=== PATIENT | male | born 1940 | race Caucasian/White ===

== ENCOUNTER 2016-09-03 22:08 | Inpatient (IN) | payer MEDICARE, OTHER ==
[~2016-09-03] VITALS: Ht 175.3 cm; Wt 89.7 kg
--- NOTE | ~2016-09-03 | CATH ---
Cardiac Diagnostic + PCI Report Demographics Patient Name DEON Maier Gender Male Date of 1940 Age 75 year(s) Patient Number [id number] Date of Study 09/04/2016 Visit Number [id number] Room Number G6322 [place] [id number] Ht 175.26 cm Wt 91.3 kg Referring Gale Callahan MD Primary Physician Physician Performing Shandra Secondary Physician Physician Silvia FERNANDEZ Diagnostic [facility] Assisting Physician Physician Silvia FERNANDEZ Interventional [facility] Physician Ethics Officer Physician Silvia FERNANDEZ Findings and Conclusions Diagnostic Findings and Conclusion NSTEMI with trop of 5.2/CKMB 70 with ongoing chest pain: 2 vessel CAD. 100% proximal LCX occlusion, this is the culprit for STEMI. 60% ostial Diag stenosis. Aneurysmal LAD and RCA. Diagnostic Recommendations PCI of culprit vessel (LCx). Interventional Findings and Conclusion Successful PCI of LCx with two RENU. Interventional Recommendations DAPT x 1 year. Patient will be observed overnight. Continue current medications. Hydration and followup creatinine. Patient has been instructed to not lift anything more than 5 pounds for 1 week. I will plan on seeing the patient back in 2 week(s). Aggressive risk factor management. Aggressive medical therapy for coronary artery disease. ASA. Statin. Beta Nash. Osbaldo Inhibitor. Dual Anti-platelet therapy. Lipid lowering medication: statin will be given. Cardiac diet . Optimization of medical therapy as an outpatient. Optimization of medical therapy as an inpatient. Referral to Cardiac Rehabilitation now and at discharge . Procedure Description The patient was brought to the diagnostic cardiac catheterization-EP laboratory in the fasting, non-sedated state. Informed consent was obtained in the written and verbal form after the risks and benefits were explained. The patient had no further questions and agreed to proceed. The planned puncture-incision site(s) were shaved and prepped with ChloraPrep and draped in the usual sterile manner. Conscious sedation, supplemental oxygen, and pain control medications were delivered by a registered nurse under physician guidance. Surface ECG rhythm, blood pressure measurement, and pulse oximetry were monitored throughout the procedure. Arterial access. The access site was infiltrated with lidocaine. The vessel was entered with the Seldinger technique. A sheath was advanced into the vessel and used for catheter placement. Selective left coronary angiography. A catheter was advanced into the left coronary vessel ostium under Fluoroscopic guidance. Contrast was injected by hand. Images were obtained in multiple projections. Selective right coronary angiography. A catheter was advanced into the right coronary vessel ostium under fluoroscopic guidance. Contrast was injected by hand. Images were obtained in multiple projections. Left heart catheterization. A catheter was advanced across the aortic valve to the left ventricle under fluoroscopic guidance. Resting hemodynamics were obtained. Angioplasty and Stent Placement: A guiding catheter was used to intubate the vessel. A 0.14 wire was then used to cross the lesion. A balloon catheter was placed across the lesion and inflated. The balloon catheter was then removed. A Drug Eluting Stent was placed and inflated. Post placement angiograms were performed. Arterial artery hemostasis was achieved. The patient was transferred to a regular nursing floor via cart accompanied by a nurse. The patient left the laboratory in stable condition. Diagnostic Cath Status: Urgent Interventional Cath Status: Urgent Procedure Procedure Type Diagnostic procedure:Angiography:, Coronary Angios w/[facility] PCI procedure:Drug Eluting Coronary Stent:, CFX Indications: Non-ST elevation VA and Chest pain. The procedure was explained in detail to the patient. Risks, complications and alternative treatments were reviewed. Written consent was obtained. Medications Reviewed with Patient prior to Procedure. Angiographic Findings Dominance: Right Cardiac Arteries and Lesion Findings LMCA: Normal (0% Stenosis). LAD: Aneurysmal and Multiple stenosis. Lesion on Mid LAD: Mid subsection.40% stenosis . Lesion on 1st Diag: Ostial.60% stenosis . Comments:Focal. LCx: Acute occlusion. Lesion on Prox CX: Proximal subsection.100% stenosis 14 mm length reduced to 0%. Pre procedure ROB 0 flow was noted. Post Procedure ROB III flow was present. The guidewire cross was successful.The lesion was diagnosed as a high risk lesion.Culprit lesion. Devices used - Runthrough NS .014 x 180. Number of passes: 1. - Emerge Balloon 2.0 x 8. 2 inflation(s) to a max pressure of: 4 mike. - Promus Premier 2.75 x 12 Stent. 2 inflation(s) to a max pressure of: 11 mike. - Runthrough NS .014 x 180. Number of passes: 1. - Promus Premier 2.5 x 12 Stent. 2 inflation(s) to a max pressure of: 16 mike. - Emerge Balloon 2.0 x 8. 1 inflation(s) to a max pressure of: 8 mike. - Emerge Balloon 2.0 x 8. 1 inflation(s) to a max pressure of: 8 mike. - Emerge Balloon 2.0 x 8. 1 inflation(s) to a max pressure of: 8 mike. RCA: Diffuse irregularity.Ectactic. Lesion on Prox RCA: Proximal subsection.10% stenosis .The lesion was diffuse. Lesion on 1st RPL: Mid subsection.30% stenosis . Coronary Tree Procedure Data Procedure Date Date: 09/04/2016Start: 09:35 AMEnd: 10:36 AM Entry Locations - Retrograde Percutaneous access was performed through the Right Radial artery (Primary location). A 5.5 Fr sheath was inserted. Hemostasis was successfully obtained using Mechanical Compression. Closure Comments: 14 ml of air in R. Band by Noah Louis. Procedure Medications Order and Administration + + + + + !Time !Medication !Dosage !Route ! + + + + + !09/04/2016 09:24 !Oxygen !2 l/min ! ! !AM ! ! ! ! + + + + + !09/04/2016 09:29 !Versed !1 mg !I.V. ! !AM ! ! ! ! + + + + 09/04/2016 09:29 !Fentanyl !25 mcg !I.V. ! !AM ! ! ! ! + + + + + 09/04/2016 09:40 !Heparin (ACC_3) !2500 units !I.V. bolus ! !AM ! ! ! ! + + + + 09/04/2016 09:40 !Heparin Drip ( 2500u/250ml) ! ! ! !AM ! ! ! ! + + + + 09/04/2016 09:46 !Angiomax (Bivalirudin) !67.5 mg !I.V. bolus ! !AM !(ACC_5) ! ! ! + + + + 09/04/2016 09:49 !Versed !1 mg !I.V. ! !AM ! ! ! ! + + + + + !09/04/2016 09:49 !Fentanyl !50 mcg !I.V. ! !AM ! ! ! ! + + + + + !09/04/2016 09:50 !Angiomax (Bivalirudin) !1.75 mg/kg/hr!I.V. drip ! !AM !(ACC_5) ! ! ! + + + + + !09/04/2016 10:04 !Fentanyl !25 mcg !I.V. ! !AM ! ! ! ! + + + + + !09/04/2016 10:04 !Nipride !200 mcg !I.C. ! !AM ! ! ! ! + + + + + !09/04/2016 10:09 !Nitroglycerin ! !I.V. drip ! !AM ! ! ! ! + + + + + !09/04/2016 10:12 !Nitroglycerin !200 mcg !I.C. ! !AM ! ! ! ! + + + + + !09/04/2016 10:26 !Brilinta (Ticagrelor) !180 mg !P.O. ! !AM !(ACC_20) ! ! ! + + + + + Devices Used - A5 Fr. BS JR 4 Diag. Catheterwas used for:Right coronary angiography. - A5 Fr. BS JL 3.5 Diag. Catheterwas used for:Left coronary angiography. - A6 Fr. EBU 3.5 Guide Catheterwas used for:Circumflex Intervention. Contrast Material - Isovue 187532 ml Fluoroscopy Time: Diagnostic: 14:36 minutes. Total: 14:36 minutes. Fluoroscopy Dose: Diagnostic: 2183 mGy. Total: 2183 mGy. Estimated Blood Loss: 15 ml. Medical History Allergies - No known allergies. Risk Factors The patient risk factors include:treated hypercholesterolemia, treated hypertension, family history of premature CAD, last creatinine: 1.2 mg/dl, creatinine clearance: 68.69 ml/min, dyslipidemia and former tobacco use. Admission Data Admission Date: 09/03/2016 Admission Time: 11:35 PM Admit Source: Emergency department Insurance Payors: Medicare. Admission Medications + +------+------+ + + + + !Medication !Dosage!Times !Last !Last !Administered !Comments ! ! ! !Per !Delivery !Delivery ! ! ! ! ! !Day !Date !Time ! ! ! + +------+------+ + + + + !Aspirin ! ! ! ! ! ! ! !(any) ! ! ! ! ! ! ! + +------+------+ + + + + !Statin ! ! ! ! ! ! ! !(any) ! ! ! ! ! ! ! + +------+------+ + + + + !Beta ! ! ! ! ! ! ! !Nash ! ! ! ! ! ! ! !(any) ! ! ! ! ! ! ! + +------+------+ + + + + Clinical Evaluation Leading to Procedure - The patient's CAD presentation was assessed as: Non-STEMI.The symptom onset was first noted on 09/03/2016 09:00 PM(time was estimated). Snapshots Hemodynamics Condition: Rest O2 Consumption: Estimated: 245.88Heart Rate: 80 bpm Pressures (mmHg) +-----+ + !Site !Pressure ! +-----+ + !LV !150/12 ,22 ! +-----+ + !LV !150/11 ,21 ! +-----+ + !AO !152/88 (116) ! +-----+ + !LV !154/12 ,23 ! +-----+ + !AO !151/87 (117) ! +-----+ + !AO !148/83 (111) ! +-----+ + Valve Gradients and Areas + +---------+---------+---------+ +---------+ + !Valve !Peak !Mean !Area !Index !Flow !Source ! + +---------+---------+---------+ +---------+ + !Aortic !1 !0 ! ! ! ! ! + +---------+---------+---------+ +---------+ + !Aortic !1 !0 ! ! ! ! ! + +---------+---------+---------+ +---------+ + Shunts Oxygen Values O2 Capacity 191.76 O2 Consumption 245.88 Signatures dtt: SILVIA DOUGLAS dtd: 09/04/16 0935 Physician Self Edit
--- NOTE | ~2016-09-03 | ECHO ---
Transthoracic Echocardiography Report (TTE) Demographics Patient Name RIZWAN CHAVARRIA Date of Study 09/04/2016 Patient Number [id number] Visit Number [id number] Date of 1940 Room Number G6322 Accession Number [id number] Gender Male Age 75 year(s) Referring Hillary Tovar MD Labor Relations Officer Joseph Sin RVT, Physician RDCS Physician Interpreting Shandra Vega Geoscientist Physician Supervising Ordering Physician Hillary Tovar MD, MD/P Nurse Stress Actimize Architect Conclusions Contractility Score Summary Normal Left Ventricular contractility was noted. Summary Normal LV/RV size and systolic function. The estimated left ventricular ejection fraction is 55-60%. Mild concentric left ventricular hypertrophy. Diastolic flow assessment reveals impaired relaxation consistent with Grade I diastolic dysfunction . The left atrium is mildly dilated. No significant valvular abnormalities. Procedure Type of Study TTE procedure:2D Echocardiogram. Procedure Date Date: 09/04/2016 Start: 08:21 AM Study Location: Inpatient Portable Technical Quality: Adequate visualization Indications:Chest pain. Appropriate Use Criteria: 8 Patient Status: Routine HR: 71 bpm BP: 125/59 mmHg Allergies - No known allergies. M-Mode/2D Measurements LV Diastolic Dimension: 4.32 cm LV Systolic Dimension: 2.97 cm LV Septum Diastolic: 1.21 cm LV PW Diastolic: 1.22 cm AO Root Dimension: 2.8 cm Cardiac Output: 4.01 l/min AV Cusp Separation: 2.1 cm RV Diastolic Dimension: 2.17 cm LA volume: 71 ml LVOT: 2.1 cm RV Base: 2.92 cm LVOT VTI: 16.3 cm RV Mid: 1.7 cm LV Stroke volume: 56.43 ml TAPSE: 2.66 cm TDI-S': 8.77 cm/s Doppler Measurements AV Peak Velocity: 1.04 m/s MV Peak E-Wave: 0.71 m/s AV Peak Gradient: 4.33 mmHg MV Peak A-Wave: 0.62 m/s AV Mean Gradient: 3 mmHg MV E/A Ratio: 1.14 LVOT Peak Velocity: 0.72 m/s MV P1/2t: 66 msec TR Gradient:15.52 mmHg PV Peak Velocity: 0.66 m/s PV Peak Gradient: 1.75 mmHg E' Septal Velocity: 0.07 m/s A' Septal Velocity: 0.12 m/s E' Lateral Velocity: 0.09 m/s A' Lateral Velocity: 0.16 m/s Findings Left Ventricle Mild concentric left ventricular hypertrophy. Diastolic assessment reveals Grade I diastolic dysfunction. Right Ventricle Normal right ventricle structure and function. Left Atrium The left atrium is mildly dilated. There is no evidence of patent foramen ovale or atrial septal defect by color Doppler. Right Atrium Normal right atrial size. IVC measures 1.80 cm with inspiratory collapse. Mitral Valve Normal mitral valve structure and function. Aortic Valve Normal aortic valve structure and function. Tricuspid Valve Normal tricuspid valve structure and function. Pulmonic Valve PV is not well visualized. Pericardial Effusion No evidence of pericardial effusion. Epicardial fat pad noted. Miscellaneous Visualized portions of the aortic root and ascending aorta appear normal in size. Pleural Effusion No evidence of pleural effusion. Contractility Score LV regional wall motion:(0-Non visualized 1-Normal 2-Hypokinesis 3-Akinesis 4-Dyskinesis 5-Aneurysm) Signature dtt: ANNALEE DOUGLAS dtd: 09/04/16 0821 Physician Self Edit
--- NOTE | ~2016-09-03 | DS ---
PATIENT'S NAME: RIZWAN CHAVARRIA [facility] AGE: 75 Y [address] ROOM: [address] [place] [address] LOCATION: GPCU ADMIT DATE: 09/04/2016 Discharge Summary DISCHARGE DATE: 09/05/2016 FAMILY PHYSICIAN: Bravo Ontiveros PA-C ATTENDING PHYSICIAN: Chele Thornton PRIMARY DIAGNOSES: 1. Tkp-XC-konyqwd elevation myocardial infarction. 2. Acute hypoxic respiratory failure. 3. Chronic conditions includes history of prostate cancer. PRINCIPAL PROCEDURE: Done for the patient includes a cardiac cath with a PCI with placement of a drug-eluting stent to the OM. LABORATORY DATA: Cardiac enzyme on admission, first was less than 0.040, highest level of cardiac enzyme obtained was 36.5, prior to discharge was 11; CPK highest level obtained was 1050; CK-MB on admission was 1.0, highest level obtained was 114.4. WBC remained stable throughout the hospital stay at 7.7 upon discharge; H and H were also stable throughout the hospital stay at 14.5 and 43.5 upon discharge; platelet was stable at 210. Creatinine was stable at 1.2 on admission, prior to discharge was 1.1; sodium was also stable throughout the hospital stay; potassium remained stable throughout the hospital stay at 4.0 on admission, prior to discharge was 4.5. Liver function test was within normal limits throughout the hospital stay. Hemoglobin A1c was 5.7. Total cholesterol was 271, triglyceride 269, HDL 49, LDL 169. RADIOLOGY DATA: Chest x-ray, mild bibasilar scarring or atelectasis. CTA for PE protocol reported as no evidence of pulmonary embolic disease, diffuse bronchial wall thickening raising the question of bronchitis, cholelithiasis, right renal cyst measuring 5 cm. Echocardiogram, normal left ventricular contractility, ejection fraction 55% to 60%, mild concentric LVH, diastolic shows impaired relaxation consistent with grade 1 diastolic dysfunction. Catheterization: Two-vessel coronary artery disease, 100% proximal left circumflex occlusion. This is the culprit for STEMI. 60% posterior diagonal stenosis. So the patient had stenting of the left circumflex, aneurysmal LAD and RCA, and interventional findings and conclusion, successful PCI of left circumflex with 2 RENU. HOSPITAL COURSE: For history of present illness, please take a look at the H and P, which was done by Dr. Thornton. The patient was admitted to progressive care unit, was managed per the ACS protocol, was on heparin, and also had a Cardiology consult. He did also present with acute hypoxic respiratory failure, had a PE ruled out with a CTA chest, and by the next day of the hospital stay, the patient was taken into the clinical lab technologist, and had a catheterization done with PCI and had complete occlusion of the left PATIENT'S NAME: RIZWAN CHAVARRIA [facility] AGE: 75 Y [address] ROOM: [address] [address] LOCATION: GPCU ADMIT DATE: 09/04/2016 Discharge Summary DISCHARGE DATE: 09/05/2016 FAMILY PHYSICIAN: Bravo Ontiveros PA-C ATTENDING PHYSICIAN: Chele Thornton, and subsequently had a RENU stent placed. Procedure was well tolerated by the patient without any intraoperative or postop complication, and one day post procedure, the patient was in his stable clinical condition. He was weaned off oxygen, and he was cleared for discharge by Cardiology, and the patient was discharged home. MEDICATIONS ON DISCHARGE: 1. Aspirin 81 mg p.o. daily. 2. Vasotec 2.5 mg p.o. daily. 3. Lopressor 25 mg p.o. twice daily. 4. Crestor 40 mg p.o. q.h.s. 5. Brilinta 90 mg p.o. twice daily. 6. Casodex 50 mg p.o. daily. 7. Lupron Depot 30 mg IM every 12 days. 8. MiraLAX 17 g p.o. q.24 hours. MD VERONIKA PETERS/leroy /[id number] d: 09/06/16 0000 t: 09/18/16 1643, DISCHARGE SUMMARY
--- NOTE | ~2016-09-03 | HP ---
PATIENT'S NAME: RIZWAN CHAVARRIA [facility] AGE: 75 Y [address] ROOM: [address] [place], [place] [address] LOCATION: GPCU ADMIT DATE: 09/03/2016 History & Physical DISCHARGE DATE: FAMILY PHYSICIAN: PHYSICIAN, UNKNOWN ATTENDING PHYSICIAN: LEE NOLAND DATE OF SERVICE: CHIEF COMPLAINT: Chest pain. HISTORY OF PRESENT ILLNESS: This is a 75-year-old male, who says that around 9 p.m. last night when he went to bed, he felt this substernal chest pain associated with mild dyspnea on exertion, and he said this substernal chest pain is like the chest tightness about intensity of 8/10 and is in the substernal area and it does not radiate. It is localized in that area. The pain is constant. At that time, the patient did not do anything and he was hoping that the chest pain would go away, but it did not. The chain pain actually got worse. Therefore, he called the ambulance, and the patient was brought here to the ER. During the ambulance ride, the patient got two doses of nitroglycerin sublingual and his chest pain got improved, but never went away totally. His dyspnea on exertion already resolved by the time he was in the ambulance. His only complaint was just the chest pain only at that time. In the emergency room, the patient was having more chest pain again and cardiac enzymes the first set in the emergency room was negative, troponin less than 0.04, CPK 87, CK-MB 1.0, and EKG on admission in the emergency room did show sinus arrhythmia with a right bundle-branch block. This is complete right bundle-branch block given that the QRS is more than 120 milliseconds and also has evidence of ST depression in the anterolateral inferior leads. No ST elevation. No prior EKG for comparison. The EKG performed in the ambulance also shows similar findings. The patient was put on nitroglycerin drip, and his chest pain got better. Right now, he is rating at a 2/10 intensity. The patient was admitted for further evaluation in the hospital and that was when I was notified for the admission. The patient says that he has had this kind of chest pain roughly 2 to 3 years ago about just one time, but he did not ask for any medical attention at that time. REVIEW OF SYSTEMS: As mentioned in the history of present illness. All other systems reviewed and negative, except those mentioned in the history of present illness. PAST MEDICAL HISTORY: PATIENT'S NAME: RIZWAN CHAVARRIA [facility] AGE: 75 Y [address] ROOM: [id number] [place], [place] [address] [facility] AD[facility] DATE: 09/03/2016 History & Physical DISCHARGE DATE: FAMILY PHYSICIAN: PHYSICIAN, UNKNOWN ATTENDING PHYSICIAN: LEE NOLAND 1. Hypertension. 2. History of prostate cancer, status post radical prostatectomy, on leuprolide, and status post radiation and already finished radiation. ALLERGIES: NO KNOWN DRUG ALLERGIES ACCORDING TO THE PATIENT. HOME MEDICATIONS: Currently, it is being reconciled. The patient does take a baby aspirin 81 mg daily. He took one dose already before coming to the hospital. SOCIAL HISTORY: The patient was a former cigarette smoker. He quit about in year 1979, and he was a former smoker about 2 packs per day for roughly 10 years. He is a social alcohol drinker, but he denies any alcohol abuse. He denies any illegal drug use. FAMILY HISTORY: Father from myocardial infarction at age 60s and mother from old age at 90-year-old. PAST SURGICAL HISTORY: 1. Status post right shoulder surgery. 2. Status post bilateral cataract surgery. 3. Status post radical prostatectomy for prostate cancer, already finished radiation and currently is on leuprolide. 4. Status post tonsillectomy. PHYSICAL EXAMINATION: VITAL SIGNS: At the time of my dictation, temperature 98, blood pressure 125/75, respirations 14, saturation 99% on 1 L nasal cannula, and heart rate 80. Pain 2/10 in the substernal chest area. GENERAL APPEARANCE: Alert and oriented x3. In no acute distress. HEENT: Pupils are equally round and reactive to light. Extraocular muscles intact. Nasal turbinates are normal bilaterally. Moist oral mucosa. NECK: No JVD. CARDIOVASCULAR: Regular rate and rhythm. Normal S1, S2. No murmur. No rubs. No gallops. RESPIRATORY: Clear. Chest wall nontender to palpation. ABDOMEN: Soft, nontender, and nondistended. Normal bowel sounds. No hepatosplenomegaly, and bowel sounds are present. EXTREMITIES: No edema in upper or lower extremities. NEUROLOGIC: Grossly nonfocal. SKIN: No ulcer. No rash. No cyanosis. PATIENT'S NAME: RIZWAN CHAVARRIA [facility] AGE: 75 Y [address] ROOM: [id number] [place], [place] [address] [facility] AD[facility] DATE: 09/03/2016 History & Physical DISCHARGE DATE: FAMILY PHYSICIAN: PHYSICIAN, UNKNOWN ATTENDING PHYSICIAN: LEE NOLAND LABORATORY DATA: Troponin less than 0.04 in the first set. The second set went up to 0.395. CPK 87, followed by 105. CK-MB 1.0, followed by 1.9, which is elevated. White blood cell 7.9, hemoglobin 14.3, hematocrit 42.6, MCV 93.2, platelet 221, glucose 137, BUN 22, creatinine 1.2, sodium 143, potassium 4.0, chloride 107, CO2 of 27, calcium 9.5, total protein 6.6, albumin 3.3, AST 20, ALT 20, alkaline phosphatase 50, total bilirubin 0.3, magnesium 2.3, anion gap 13, GFR 59, INR 0.93, PTT 23, D-dimer 0.51. IMAGING STUDIES: CT pulmonary angiogram on admission: The preliminary report was read as no pulmonary embolism. Moderate vascular disease. Mild diffuse bronchial wall thickening, consider bronchitis. Cholelithiasis. EKG on admission on September 03, 2016, at 10:20 p.m. shows sinus rhythm with occasional PVC and has a complete right bundle-branch block. Heart rate 76, QRS 136 milliseconds, QTc 438 milliseconds, MS [address] depression in the anterolateral inferior leads. No prior EKG for comparison. Repeat EKG again on September 04, 2016, at 2:19 a.m. showed sinus arrhythmia with complete right bundle-branch block, heart rate 91, QTc 423 milliseconds, QRS 134 milliseconds, MS 183 milliseconds, and still with ST depression in the anterolateral inferior leads. EKG performed during the ambulance on the way here showed sinus rhythm, heart rate 84 beats per minute with right bundle- branch block, QRS was 126 milliseconds, and still with ST depression at that time also in the anterolateral inferior leads. ASSESSMENT AND PLAN: 1. Regarding his jce-GS-frgtemg elevation myocardial infarction: N.p.o. Aspirin 81 mg three tablets right now and then 81 mg daily given the patient already received a baby dose aspirin at home before coming here; Crestor 40 mg p.o. daily (the patient has allergy to Lipitor which causes myalgia, but the patient is willing to try Crestor in the setting of NSTEMI); Lopressor 25 mg p.o. b.i.d. with holding parameter, hold if heart rate less than 60 or systolic blood pressure less than 100; IV heparin drip bolus, followed by drip per ACS protocol; and continue IV nitroglycerin drip, titrate for chest pain control. We will also order IV morphine p.r.n. for anxiety and for chest pain control and good for air hunger as well. Cycle cardiac enzymes. Cardiology consult in the morning. Transthoracic echo in the morning. Check A1c and lipid panel in the morning. Keep the potassium more than 4 and keep the magnesium more than 2. Further plan depends on clinical course. 2. Regarding his hypertension: Home medication will be addressed. For now, continue Lopressor in the setting of acute coronary syndrome. 3. Regarding his deep venous thrombosis prophylaxis: He is on heparin drip. 4. Code status: He is a DNI, but not DNR. PATIENT'S NAME: RIZWAN CHAVARRIA [facility] AGE: 75 Y [address] ROOM: [place] [address] [facility] AD[facility] DATE: 09/03/2016 History & Physical DISCHARGE DATE: FAMILY PHYSICIAN: PHYSICIAN, UNKNOWN ATTENDING PHYSICIAN: LEE NOLAND Time spent on the day of admission is 35 minutes including chart review, interviewing the patient, examining the patient, addressing all the questions and the concerns the patient had, and I also went over the plan of care in detail with the patient and nurses. Answered all of the patient's questions to his satisfaction. Further plan depends on the clinical course. The patient is in agreement with the plan on admission. Further plan will depend on the patient's clinical course. MD DOROTA ZAMAN/leroy /[id number] D: [id number] T: [id number] HISTORY & PHYSICAL
--- NOTE | ~2016-09-03 | CON ---
PATIENT'S NAME: RIZWAN PARKER [facility] AGE: 75 Y [address] ROOM: [id number] [place], [place] [address] LOCATION: GPCU ADMIT DATE: 09/04/2016 Consultation DISCHARGE DATE: FAMILY PHYSICIAN: PHYSICIAN, UNKNOWN ATTENDING PHYSICIAN: LEE NOLAND DATE OF CONSULTATION: 09/04/2016 REFERRING PHYSICIAN: ANNALEE DOUGLAS MD REQUESTING PROVIDER: Dr. Noland. REASON FOR CONSULTATION: Non-STEMI. CHIEF COMPLAINT: Chest pain. HISTORY OF PRESENT ILLNESS: The patient is a very pleasant, 75-year-old male who has history of prostate cancer, status post surgery, and now is on hormonal therapy. He also has history of hypertension. He does not have any known cardiac history. He says, around 9 p.m. last night when he went to bed, he felt substernal chest pain associated with shortness of breath. He said it was like a tightness, and it was 8/10 on the pain scale. It did not radiate to the arm or the jaw. The pain was continuous and quite severe. He was hoping that it would go away, but it really was persistent, and finally, he called the ambulance and ended up coming to [facility] ER. When he came in, the chest pain was even worse, and he got 2 doses of sublingual nitroglycerin in the ambulance, and the chest pain improved. He also received aspirin. When he came into the ER, EKG was done. EKG in the emergency room showed right bundle-branch block, and there were some mild ST depressions in the inferior leads and V3 and V4. There was no evidence of any ST elevation. His first set of enzymes were normal. The patient reports that he continued to have chest pain about 1 to 2 during the night. He was on heparin and nitroglycerin drip. This morning, his enzymes have increased significantly. CK-MB is in the 70s, and troponin peaked at 5.2. This a.m., he reports no chest discomfort, and he is quite comfortable. No shortness of breath. No fever, chills, nausea, vomiting, diarrhea, constipation, skin rashes, slurred speech, or changes in his strength or sensation. No changes in swallowing, vision, or hearing. No cough or sputum production. REVIEW OF SYSTEMS: Discussed with the patient, and the pertinent positives and negatives are PATIENT'S NAME: RIZWAN PARKER [facility] AGE: 75 Y [address] ROOM: [place] [address] LOCATION: GPCU ADMIT DATE: 09/04/2016 Consultation DISCHARGE DATE: FAMILY PHYSICIAN: PHYSICIAN, UNKNOWN ATTENDING PHYSICIAN: ELE NOLAND mentioned in the HPI. PAST MEDICAL HISTORY: 1. Hypertension. 2. History of prostate cancer. PAST SURGICAL HISTORY: Status post radical prostatectomy several years ago, status post radiation, and now on hormonal therapy for prostate cancer; status post right shoulder surgery; bilateral cataract surgeries; and status post tonsillectomy. ALLERGIES: NO KNOWN DRUG ALLERGIES. HOME MEDICATIONS: He is on: 1. Aspirin 81 mg daily. 2. MiraLAX p.r.n. 3. Lisinopril 10 mg daily. 4. Lupron injections every 3 months. 5. Casodex daily. SOCIAL HISTORY: He is a former cigarette smoker, he quit in the 80s. No illicit drug abuse or alcohol abuse. FAMILY HISTORY: No premature coronary artery disease or sudden cardiac . PHYSICAL EXAMINATION: VITAL SIGNS: Blood pressure 120/70, respirations 16, O2 saturation 99% on 1 L of oxygen, and heart rate in the 70s. The patient denies chest pain. GENERAL APPEARANCE: Alert and oriented x3, in no apparent distress. HEENT: Extraocular movements are intact. Mucous membranes moist. Atraumatic, normocephalic. NECK: No JVD. HEART: S1 and S2. Regular rate and rhythm. No murmurs, gallops, or rubs. RESPIRATORY: Clear to auscultation bilaterally. ABDOMEN: Soft. Bowel sounds positive. EXTREMITIES: No significant lower extremity edema. NEUROLOGIC: Grossly normal. MUSCULOSKELETAL: Good range of motion. SKIN: No rashes. Warm and dry. LABORATORY DATA: PATIENT'S NAME: RIZWAN PARKER [facility] AGE: 75 Y [address] ROOM: [place] [address] LOCATION: GPCU ADMIT DATE: 09/04/2016 Consultation DISCHARGE DATE: FAMILY PHYSICIAN: PHYSICIAN, UNKNOWN ATTENDING PHYSICIAN: LEE NOLAND Sodium 143, potassium 4.8, chloride 108, CO2 26, BUN 23, creatinine 1.2, and glucose 108. Alkaline phosphatase 50. GFR 59. Total cholesterol 271, triglycerides 269, HDL 49, VLDL 53, and LDL is 169. CPK when he came in 87, then 105, and this morning 493. CK-MB 1, 5.9, and then 70.5. Troponin 0.04, 0.3, and then 5.2. ProBNP 108. H and H are 14.1 and 42.3, WBC 8.8, and platelets are 232. Chest x-ray: No acute cardiopulmonary process. CT, preliminary report: No PE. ASSESSMENT AND PLAN: 1. Dab-UD-ciuyvoypv myocardial infarction. There is enzyme elevation that is quite significant, and the trend is suggestive of dul-DL-xstehgubx myocardial infarction. He also had chest pain most of the night; however, it was much milder than when he came in. He was on heparin and nitroglycerin drip. He is chest pain-free this morning. He got aspirin. He is on Crestor here. Lopressor has been started. He is on FLOWER inhibitor. We will go ahead and proceed with cardiac cath. Risks and benefits discussed with the patient, and the patient agreeable to proceed with cardiac cath. Risks of bleeding, bruising, infection, one in 100 cases risk of heart attack, , stroke, [place], losing a limb, ending up on dialysis, and contrast-induced nephropathy discussed in layman's terms with the patient, the risk of is less than 1 in a 1000. The patient, at this time, given the presentation, he is agreeable to proceed with cardiac cath. We will also get 2D echocardiogram to assess left ventricular systolic function as well as valve prior to proceeding with cath. He does not have any contrast allergies, and he is a good candidate for dual-antiplatelet therapy. 2. Hypertension. It is well controlled. We will continue his home medications. 3. History of prostate cancer, status post prostatectomy as well as radiation therapy. He is now on hormonal therapy. Thank you very much for allowing us to participate in the care of Mr. Parker. ANNALEE DOUGLAS MD AT/leroy /[id number] d: 09/04/16 1329 t: 09/05/16 0940, CONSULTATION REPORT
--- NOTE | ~2016-09-03 | ER ---
PATIENT'S NAME: RIZWAN CHAVARRIA [facility] AGE: 75 Y [address] ROOM: [place] [address] LOCATION: GPCU ADMIT DATE: 09/03/2016 ER/Outpatient Report DISCHARGE DATE: FAMILY PHYSICIAN: PHYSICIAN, UNKNOWN ATTENDING PHYSICIAN: LEE NOLAND Time of Arrival: 2206 hours. Time of Evaluation: 2206 hours. CHIEF COMPLAINT: Chest pain. HISTORY OF PRESENT ILLNESS: The patient is a 75-year-old male who presents to the Emergency Department today with a chief complaint of chest pain. He reports this started 1 hour prior to arrival. He denies any nausea or vomiting. Does report some shortness of breath as well as diaphoresis, no radiation. Did have an episode of near syncope as well. It is a pressure in the center of his chest, maximum is 8/10, currently it is 2/10 in severity. Denies any ripping or tearing sensation. No radiation to the back. Not maximal on onset. Denies history of PE or DVT in the past. No unilateral leg swelling. PAST MEDICAL HISTORY: Hypertension and prostate cancer. PAST SURGICAL HISTORY: Prostate, right shoulder, and tonsils. FAMILY HISTORY: Dad with heart attack at 63. SOCIAL HISTORY: The patient denies any tobacco use. Reports 2-3 glasses of wine at night. Denies any illicit drug use. ALLERGIES: NO KNOWN DRUG ALLERGIES. MEDICATIONS: 1. Lupron. 2. Lisinopril. 3. Aspirin. PRIMARY CARE DOCTOR: Justice Metz. REVIEW OF SYSTEMS: PATIENT'S NAME: RIZWAN CHAVARRIA [facility] AGE: 75 Y [address] ROOM: [place] [address] LOCATION: GPCU ADMIT DATE: 09/03/2016 ER/Outpatient Report DISCHARGE DATE: FAMILY PHYSICIAN: PHYSICIAN, UNKNOWN ATTENDING PHYSICIAN: LEE NOLAND All systems are reviewed by myself and are negative with the exception of those discussed in HPI and past medical history. PHYSICAL EXAMINATION: VITAL SIGNS: Weight 93.6 kg, blood pressure 125/74, pulse 76, respiratory rate 18, temperature 97.0, and oxygen saturation 95% on room air. GENERAL: The patient is a 75-year-old male who appears his stated age, in no acute distress at this time. HEENT: Normocephalic, atraumatic. Pupils are equal, round, and reactive to light. NECK: Supple. There is no JVD. CARDIOVASCULAR: Regular rate and rhythm. No murmurs, rubs, or gallops. LUNGS: Clear to auscultation bilaterally. No wheezes, rales, or rhonchi. ABDOMEN: Soft, nontender, and nondistended. No rebound, rigidity, or guarding. MUSCULOSKELETAL: The patient moves all 4 extremities. SKIN: Warm and dry. There are no rashes or lesions noted. LABORATORY DATA AND X-RAYS: EKG is obtained, is interpreted by myself at 2224 hours shows sinus rhythm with a rate of 76, normal axis, normal interval. No ST elevation, ST depression. There is some scooping ST depression noted on the pre-hospital EKG as well as the EKG here in the Emergency Department at V3, V4 with nonspecific T waves. CBC is normal. CMP is normal. LFTs are normal. Cardiac enzymes are normal. Coags are normal. D-dimer is normal. ProBNP is normal. Chest x-ray shows no acute process. IMPRESSION: 1. Chest pain, rule out acute coronary syndrome. 2. Abnormal EKG. 3. Initial visit. EMERGENCY DEPARTMENT COURSE: The patient was brought back to the examination room. Seen and evaluated by myself. IV is established. Laboratory analysis and imaging are obtained as described above. The patient was given nitroglycerin prior to arrival as well as aspirin prior to arrival. The nitroglycerin did improve the patient's symptoms. Chest pain did come back, the patient was given 2 mg of morphine IV. He was then started on nitroglycerin drip. He was also given 650 mg of Tylenol p.o. I have discussed the results with the patient. His chest pain has improved at this time. His vital signs are stable. I have discussed that I would recommend an admission to the hospital for further evaluation, treatment, and management. The patient and his are agreeable. Their questions are answered. I have contacted Dr. Noland with the Hospitalist Service, and I have discussed the case with him. He has seen and evaluated the patient down here in the Emergency Department. He does agree to accept the PATIENT'S NAME: RIZWAN CHAVARRIA [facility] AGE: 75 Y [address] ROOM: [id number] [place] [id number] [facility]: 09/03/2016 ER/Outpatient Report DISCHARGE DATE: FAMILY PHYSICIAN: , BEATRIZ ATTENDING PHYSICIAN: LEE NOLAND patient for further evaluation, treatment, and management. DISPOSITION: The patient is admitted under the care of the Hospitalist Service and Dr. Noland in stable condition. DO RAMILA PAIGE/fatoumatal /[id number] d: 09/04/16419 t: 09/07/16 191, OUTPATIENT REPORT
[2016-09-03 22:33] LABS: BASOPHIL # 0.1 K/uL (0.0-0.2); BASOPHIL % 0.9 %; EOSINOPHIL # 0.3 K/uL (0.0-0.5); EOSINOPHIL % 4.1 %; HEMATOCRIT 42.6 % (37.0-53.0); HEMOGLOBIN 14.3 g/dL (11.0-16.0); IMMATURE GRANULOCYTE % 0.4 %; MCH 31.3 pg (27.0-34.0); MCHC 33.6 gm/dL (32.0-36.5); MCV 93.2 fl (83.0-98.0); MONOCYTE # 0.5 K/uL (0.0-1.0); MONOCYTE % 6.6 %; MPV 11.4 fl (9.4-12.4); NEUTROPHIL # (ANC) 4.9 K/uL (1.4-9.0); NRBC % 0 /100WBC (0-0.00); PLATELET COUNT 221 K/uL (150-450); RBC 4.57 M/uL (3.50-5.50); RDW-CV 13.4 % (11.9-14.6); WBC 7.8 K/uL (4.0-11.0)
[2016-09-03 22:43] LABS: INR - (THERAPEUTIC) 0.93 (0.92-1.07); PROTIME 9.8 SECONDS (9.8-11.4); PTT 23 SECONDS (25-32)
[2016-09-03 22:54] LABS: ALBUMIN 3.3 gm/dL (3.5-5.0); ALK PHOS 50 IU/L (33-138); ALT 20 IU/L (12-78); AST 20 IU/L (10-40); BLOOD UREA NITROGEN 22 mg/dL (6-24); CALCIUM 9.5 mg/dL (8.5-10.5); CHLORIDE 107 mMol/L (96-110); CO2 27 mMol/L (22-32); CPK 87 IU/L (35-332); CREATININE 1.2 mg/dL (0.6-1.3); ESTIMATED GFR (MDRD EQUATION) 59; MAGNESIUM 2.3 mg/dL (1.8-2.6); SODIUM 143 mMol/L (135-145); TOTAL BILIRUBIN 0.3 mg/dL (0.0-1.5); TOTAL PROTEIN 6.6 g/dL (6.0-8.4)
[2016-09-04] MEDS ORDERED: CASODEX50 MG PO (01:18)
[2016-09-04] MEDS ORDERED: LUPRON DEPOT IM (01:19)
[2016-09-04] MEDS ORDERED: PRINIVIL OR ZES10 MG PO (01:20)
[2016-09-04] MEDS ORDERED: MIRALAX17 GM PO (01:20)
[2016-09-04] MEDS ORDERED: ASPIRIN LO-DOSE81 MG PO (01:20)
[2016-09-04 06:06] LABS: BASOPHIL # 0.1 K/uL (0.0-0.2); BASOPHIL % 0.9 %; EOSINOPHIL # 0.3 K/uL (0.0-0.5); EOSINOPHIL % 3.2 %; HEMATOCRIT 42.3 % (37.0-53.0); HEMOGLOBIN 14.1 g/dL (11.0-16.0); IMMATURE GRANULOCYTE # 0.1 K/uL (0.0-0.3); IMMATURE GRANULOCYTE % 0.6 %; LYMPHOCYTE # 2.5 K/uL (0.8-4.0); LYMPHOCYTE % 28.9 %; MCH 31.4 pg (27.0-34.0); MCHC 33.3 gm/dL (32.0-36.5); MCV 94.2 fl (83.0-98.0); MONOCYTE # 0.7 K/uL (0.0-1.0); MONOCYTE % 7.5 %; MPV 11.9 fl (9.4-12.4); NEUTROPHIL # (ANC) 5.2 K/uL (1.4-9.0); NEUTROPHIL % 58.9 %; NRBC % 0 /100WBC (0-0.00); PLATELET COUNT 232 K/uL (150-450); RBC 4.49 M/uL (3.50-5.50); RDW-CV 13.5 % (11.9-14.6); WBC 8.8 K/uL (4.0-11.0)
[2016-09-04 06:58] LABS: ANION GAP 13.8 (10.0-19.0); CALCIUM 9.9 mg/dL (8.5-10.5); CREATININE 1.2 mg/dL (0.6-1.3); MAGNESIUM 2.6 mg/dL (1.8-2.6); POTASSIUM 4.8 mMol/L (3.7-5.1)
[2016-09-05 04:24] LABS: BASOPHIL # 0.1 K/uL (0.0-0.2); BASOPHIL % 0.6 %; EOSINOPHIL # 0.4 K/uL (0.0-0.5); EOSINOPHIL % 5.4 %; HEMATOCRIT 43.5 % (37.0-53.0); HEMOGLOBIN 14.5 g/dL (11.0-16.0); IMMATURE GRANULOCYTE % 0.3 %; LYMPHOCYTE # 2.1 K/uL (0.8-4.0); LYMPHOCYTE % 26.6 %; MCH 31.1 pg (27.0-34.0); MCHC 33.3 gm/dL (32.0-36.5); MCV 93.3 fl (83.0-98.0); MONOCYTE # 0.6 K/uL (0.0-1.0); MONOCYTE % 7.2 %; MPV 11.7 fl (9.4-12.4); NEUTROPHIL # (ANC) 4.6 K/uL (1.4-9.0); NEUTROPHIL % 59.9 %; NRBC % 0 /100WBC (0-0.00); PLATELET COUNT 210 K/uL (150-450); RBC 4.66 M/uL (3.50-5.50); RDW-CV 13.7 % (11.9-14.6); WBC 7.7 K/uL (4.0-11.0)
[2016-09-05 04:52] LABS: ALBUMIN 3.1 gm/dL (3.5-5.0); ALK PHOS 50 IU/L (33-138); ALT 28 IU/L (12-78); ANION GAP 10.5 (10.0-19.0); AST 107 IU/L (10-40); BLOOD UREA NITROGEN 18 mg/dL (6-24); CALCIUM 8.9 mg/dL (8.5-10.5); CHLORIDE 112 mMol/L (96-110); CO2 24 mMol/L (22-32); CREATININE 1.1 mg/dL (0.6-1.3); ESTIMATED GFR (MDRD EQUATION) > 60; POTASSIUM 4.5 mMol/L (3.7-5.1); SODIUM 142 mMol/L (135-145); TOTAL PROTEIN 6.5 g/dL (6.0-8.4)
[2016-09-05 04:53] LABS: TOTAL BILIRUBIN 0.4 mg/dL (0.0-1.5)
[2016-09-05] MEDS ORDERED: LOPRESSOR25 MG PO (09:02)
[2016-09-05] MEDS ORDERED: CRESTOR20 MG PO (09:03)
[2016-09-05] MEDS ORDERED: VASOTEC2.5 MG PO (09:07)
[2016-09-05] MEDS ORDERED: BRILINTA90 MG PO (09:08)
[2016-09-05] MEDS ORDERED: NITROSTAT0.4 MG SL (09:11)
== END 2016-09-05 11:18 | disposition disaster alternative care site (69) | DRG 246 ==
LOC: GMED 22:08 → GPCU 23:35
PROVIDERS: Emergency Medicine; Internal Medicine Interventional Cardiology; ADMIT Internal Medicine
PROC: B215YZZ Fluoroscopy of Left Heart using Other Contrast (ICD-10-PCS; principal; 2016-09-04)
PROC: B211YZZ Fluoroscopy of Multiple Coronary Arteries using Other Contrast (ICD-10-PCS; principal; 2016-09-04)
PROC: 027034Z Dilation of Coronary Artery, One Artery with Drug-eluting Intraluminal Device, Percutaneous Approach (ICD-10-PCS; principal; 2016-09-04)
PROC: 4A023N7 Measurement of Cardiac Sampling and Pressure, Left Heart, Percutaneous Approach (ICD-10-PCS; principal; 2016-09-04)
DX: I21.4 Non-ST elevation (NSTEMI) myocardial infarction (principal); J96.01 Acute respiratory failure with hypoxia; I25.119 Atherosclerotic heart disease of native coronary artery with unspecified angina pectoris; I45.10 Unspecified right bundle-branch block; I10 Essential (primary) hypertension; I25.84 Coronary atherosclerosis due to calcified coronary lesion; Z66 Do not resuscitate; Z87.891 Personal history of nicotine dependence; Z79.82 Long term (current) use of aspirin; Z92.3 Personal history of irradiation; Z85.46 Personal history of malignant neoplasm of prostate; Z79.818 Long term (current) use of other agents affecting estrogen receptors and estrogen levels
CPT/HCPCS: C1725; C1769; C1874; C1887; C9600; J0583; J1644; J2250; J2270; J3010; J7030; J7060; Q9967

== ENCOUNTER → 2016-09-03 | Outpatient (CLI) | payer MEDICARE, OTHER ==
[~2016-09-03] MED LIST: ASPIRIN LO-DOSE81 MG PO; BRILINTA90 MG PO; CASODEX50 MG PO; CRESTOR20 MG PO; LOPRESSOR25 MG PO; LUPRON DEPOT IM; MIRALAX17 GM PO; NITROSTAT0.4 MG SL; PRINIVIL OR ZES10 MG PO; VASOTEC2.5 MG PO
== END | disposition disaster alternative care site (69) ==
LOC: GAMB 21:46
DX: R07.9 Chest pain, unspecified (principal)

== ENCOUNTER 2016-09-07 09:48 | Emergency (ER) | payer MEDICARE, OTHER ==
--- NOTE | ~2016-09-07 | ER ---
PATIENT'S NAME: RIZWAN CHAVARRIA [facility] AGE: 75 Y [address] ROOM: [place] [address] LOCATION: ED ADMIT DATE: 09/07/2016 ER/Outpatient Report DISCHARGE DATE: 09/07/2016 FAMILY PHYSICIAN: Physician, Unknown ATTENDING PHYSICIAN: Kindra Bowles Time of Arrival: 0948 hours. Time of Evaluation/Seen: 0953 hours. IDENTIFICATION: A 75-year-old male. CHIEF COMPLAINT: Chest pain and shortness of breath. HISTORY OF PRESENT ILLNESS: The patient is a 75-year-old male who had a uqa-HU-xueqlursp FL status post stenting on September 04. He is short of breath when he lies down, sitting up is okay, and then he had some chest discomfort. Currently, he denies any pain. He is not short of breath at rest. No significant increased lower extremity edema, and he states he has been taking his Brilinta as ordered. PAST MEDICAL HISTORY: ALLERGIES: NO KNOWN DRUG ALLERGIES. CURRENT MEDICATIONS: 1. Nitroglycerin p.r.n. 2. Brilinta 90 mg b.i.d. 3. Enalapril 2.5 mg daily. 4. Rosuvastatin 20 mg daily. 5. Metoprolol 25 mg b.i.d. 6. MiraLAX 17 g daily. 7. Aspirin 81 mg daily. 8. Lupron injection q.4 months. 9. Casodex tablets 50 mg daily. MEDICAL PROBLEMS: 1. Coronary artery disease status post recent nti-NF-nraznsyxp FL and stent. 2. Hypertension. 3. Prostate cancer. PAST SURGICAL HISTORY: Prior surgeries: PATIENT'S NAME: RIZWAN CHAVARRIA [facility] AGE: 75 Y [address] ROOM: [place] [address] LOCATION: ED ADMIT DATE: 09/07/2016 ER/Outpatient Report DISCHARGE DATE: 09/07/2016 FAMILY PHYSICIAN: Physician, Unknown ATTENDING PHYSICIAN: Kindra Bowles 1. Prostatectomy. 2. Right total shoulder. 3. Bilateral cataract. 4. Tonsillectomy. SOCIAL HISTORY: The patient is . Lives in [place]. Tobacco use, denies. Alcohol use, occasional. Drug use, denies. REVIEW OF SYSTEMS: All systems reviewed and negative other than what is noted in the HPI. PHYSICAL EXAMINATION: VITAL SIGNS: Height 5 feet 8 inches and weight 89.2 kg. Blood pressure 134/65, pulse 64, respiratory rate is 18, temperature 97.0, and saturations 96% on room air. GENERAL: A 75-year-old male in no acute distress. HEENT: Head; normocephalic and atraumatic. Ears; TMs translucent in both ears. Eyes; pupils equal and reactive to light and accommodation. Extraocular movements intact. Nose; mucosa pink. No lesions. Mouth; no lesions. Pharynx; benign. NECK: Supple. No lymphadenopathy. LUNGS: Clear to auscultation. HEART: Regular rate and rhythm. No murmur, rub, or gallop. ABDOMEN: Bowel sounds present. Soft, nondistended. No hepatosplenomegaly. No palpable masses. Nontender. SKIN: Rudy, warm, and dry. No lesions or rashes noted. NEUROLOGIC: The patient is alert and oriented x4. Cranial nerves 2 through 12 grossly intact. Motor strength 5/5 throughout. Sensation is intact to light touch. No lower extremity edema. No calf tenderness. LABORATORY DATA AND IMAGING STUDIES: Hemoglobin 16.0, hematocrit 47.7, platelets 244,000, and white count 9.2 with a normal differential. INR 0.91. Sodium 141, potassium 4.7, chloride 109, CO2 of 24, BUN 19, creatinine 1.1, blood sugar 115, AST 44, and ALT 28. CPK 141, CK-MB 2.3, magnesium 2.5, and troponin I is 4.460, but this is down from his most recent one here in the hospital. Two hour enzymes; CPK 123, CK-MB 1.8, and troponin I is 4.390. ProBNP 331. D-dimer 0.66. EKG; normal sinus rhythm, right bundle branch block. No acute ST elevation or depression, and no significant change when compared to prior EKG. Repeat EKG at 2 hours, no acute findings, right bundle-branch block persist. Chest x-ray, one view, no acute process. Pending Radiology over-read. CT PE protocol, no evidence of PE, no acute findings per radiologist, Dr. Metz. IMPRESSION: PATIENT'S NAME: RIZWAN CHAVARRIA [facility] AGE: 75 Y [address] ROOM: [place], [place] [address] LOCATION: ED ADMIT DATE: 09/07/2016 ER/Outpatient Report DISCHARGE DATE: 09/07/2016 FAMILY PHYSICIAN: Physician, Unknown ATTENDING PHYSICIAN: Kindra Bowles Chest pain and shortness of breath. PLAN: Discussed with Dr. Hayes, Cardiology. He evaluated the patient in the emergency room. Discussed with the patient and his . Discontinued his Brilinta, placed him on Effient, and recommended to follow up with Dr. Vega on September 18 as scheduled. The patient and his understand and agree, and all questions have been answered. KINDRA BOWLES MD CAR/leroy /[id number] d: [id number]/07/[id number] t: 09/10/16 0642, OUTPATIENT REPORT
[2016-09-07 10:03] LABS: BASOPHIL # 0.1 K/uL (0.0-0.2); BASOPHIL % 0.9 %; EOSINOPHIL # 0.6 K/uL (0.0-0.5); EOSINOPHIL % 6.8 %; HEMATOCRIT 47.7 % (37.0-53.0); IMMATURE GRANULOCYTE # 0.1 K/uL (0.0-0.3); IMMATURE GRANULOCYTE % 0.9 %; LYMPHOCYTE # 2.9 K/uL (0.8-4.0); LYMPHOCYTE % 32.1 %; MCH 31.2 pg (27.0-34.0); MCHC 33.5 gm/dL (32.0-36.5); MONOCYTE # 0.7 K/uL (0.0-1.0); MONOCYTE % 7.7 %; MPV 11.7 fl (9.4-12.4); NEUTROPHIL # (ANC) 4.7 K/uL (1.4-9.0); NEUTROPHIL % 51.6 %; NRBC % 0 /100WBC (0-0.00); PLATELET COUNT 244 K/uL (150-450); RBC 5.13 M/uL (3.50-5.50); RDW-CV 13.6 % (11.9-14.6); WBC 9.2 K/uL (4.0-11.0)
[2016-09-07 10:12] LABS: INR - (THERAPEUTIC) 0.91 (0.92-1.07); PROTIME 9.5 SECONDS (9.8-11.4); PTT 27 SECONDS (25-32)
[2016-09-07 10:22] LABS: ALBUMIN 3.6 gm/dL (3.5-5.0); ALK PHOS 61 IU/L (33-138); ALT 28 IU/L (12-78); ANION GAP 12.7 (10.0-19.0); AST 44 IU/L (10-40); BLOOD UREA NITROGEN 19 mg/dL (6-24); CALCIUM 9.6 mg/dL (8.5-10.5); CHLORIDE 109 mMol/L (96-110); CO2 24 mMol/L (22-32); CPK 141 IU/L (35-332); CREATININE 1.1 mg/dL (0.6-1.3); ESTIMATED GFR (MDRD EQUATION) > 60; MAGNESIUM 2.5 mg/dL (1.8-2.6); POTASSIUM 4.7 mMol/L (3.7-5.1); SODIUM 141 mMol/L (135-145); TOTAL PROTEIN 7.4 g/dL (6.0-8.4)
[2016-09-07 10:25] LABS: TOTAL BILIRUBIN 0.5 mg/dL (0.0-1.5)
== END 2016-09-07 13:25 | disposition disaster alternative care site (69) ==
LOC: GMED 09:48
PROVIDERS: Family Medicine
DX: R07.9 Chest pain, unspecified (principal); R06.02 Shortness of breath; I10 Essential (primary) hypertension; I21.4 Non-ST elevation (NSTEMI) myocardial infarction; I25.10 Atherosclerotic heart disease of native coronary artery without angina pectoris; Z79.82 Long term (current) use of aspirin; Z95.5 Presence of coronary angioplasty implant and graft; Z90.79 Acquired absence of other genital organ(s); Z98.890 Other specified postprocedural states; Z85.46 Personal history of malignant neoplasm of prostate; Z79.899 Other long term (current) drug therapy